=== PATIENT | male | born 2000 | race Caucasian/White ===

== ENCOUNTER 2022-05-13 22:01 | Emergency (ER) | payer OTHER, SELFPAY ==
[2022-05-13 22:13] VITALS: BP 0/0; PULSE 0; RESP 0; TEMP -17.7; TEMP 0
== END 2022-05-13 22:14 | disposition left against medical advice (07) ==
LOC: ER 22:07
PROVIDERS: Emergency Provider Emergency Medicine
DX: R10.9 Unspecified abdominal pain (principal)
CPT/HCPCS: 99211

== ENCOUNTER 2022-08-22 09:57 | Emergency (ER) | payer OTHER, SELFPAY ==
[2022-08-22 10:40] VITALS: BP 122/84; PULSE 113; RESP 20; TEMP 37.3; O2SAT 97; BMI 32.0
--- NOTE | 2022-08-22 10:47 | EXP.UTC ---
Discharge Plan Disposition Patient Disposition: Home, Self-Care Condition: Good Prescriptions Prescriptions: No Action No Known Home Medications Referrals Follow up/Referrals: Provider,Referral, MD [Primary Care Provider] - See instructions Activity Restrictions/Add. Instructions Additional Instructions/Restrictions: Drink plenty of fluids. Take tylenol or ibuprofen for pain or fever. Take the medications as directed. Follow up with your regular doctor. GO TO THE ER FOR ANY WORSENING SYMPTOMS Throw your tooth brush away and get a new one. Clinical Impressions Clinical Impression: Strep throat Stand Alone Forms Stand Alone Forms: Work/School Release Instructions Patient Instructions: Strep Throat, DI for Strep Throat Discharge ED Provider: Franklin Campos [facility] [place] HPI General Stated complaint: Sore throat Time Seen by Provider: 08/22/22 10:47 History of Present Illness Provider Complaint: He states that for the past 1 day he has had sore throat, body aches, chills, fever and malaise. Related Data Home Medications Medication Instructions Recorded Confirmed No Known Home Medications 08/13/18 08/13/18 Allergies Allergy/AdvReac Type Severity Reaction Status Date / Time No Known Allergies Allergy Verified 08/13/18 01:58 [facility] Disclaimer: The information contained in this section may have been updated after the patient was seen, as this information can be updated by other users. Social History Smoking Status: Never smoker alcohol intake: never substance use type: marijuana current occupational status: unemployed Travel in the last 8 weeks: None ROS Obtained: Yes All systems reviewed & no additional complaints except as documented Constitutional Constitutional: Reports chills and Reports fever(s) Eyes Eyes: Denies eye discharge ENT Ears, Nose, Mouth, and Throat: Reports as per HPI Cardiovascular Cardiovascular: Denies chest pain Respiratory Respiratory: Denies chest congestion and Reports cough Gastrointestinal Gastrointestingal: Reports nausea; Denies abdominal pain, constipation, cramping, diarrhea or vomiting Musculoskeletal Musculoskeletal: Denies arthralgias Integumentary/Breasts Skin/Breast: Denies rash Neurologic Neurologic: Denies paresthesias Physical Exam General General appearance: alert and in no apparent distress Head Head exam: atraumatic, normocephalic and normal inspection Eye Eye exam: Present normal appearance, PERRL and EOMI ENT ENT exam: Present mucous membranes moist and normal external ear exam Expanded ENT Exam TM/Canal exam: Bilateral TM: erythema and bulging Nose exam: Absent sinus tenderness Mouth exam: Present normal external inspection; Absent drooling Teeth exam: Present normal inspection Throat exam: Present tonsillar erythema, tonsillomegaly and tonsillar exudate Neck Neck exam: Present normal inspection, full ROM and trachea midline; Absent tenderness, meningismus or lymphadenopathy Chest Chest inspection: Present normal inspection and symmetric chest wall rise; Absent tenderness Respiratory Respiratory exam: Present normal lung sounds bilaterally; Absent respiratory distress, wheezes or stridor Cardiovascular Cardiovascular exam: Present regular rate and normal rhythm; Absent systolic murmur or diastolic murmur Abdominal Exam Abdominal exam: Present soft and normal bowel sounds; Absent distention, tenderness, guarding, rebound or rigidity Extremities Exam Extremities exam: Present normal inspection and normal capillary refill; Absent calf tenderness Back Exam Back exam: Present normal inspection and full ROM; Absent tenderness, CVA tenderness (R) or CVA tenderness (L) Neurological Exam Neurological exam: Present alert, oriented X3 and CN II-XII intact Psychiatric Psychiatric exam: Present normal affect and normal mood Skin Skin exam: Present warm, dry, int
[2022-08-22 10:54] LABS: UTC Strep Screen (Rapid) Positive (Negative)
[2022-08-22 11:50] VITALS: BP 122/84; PULSE 113; RESP 20; TEMP 37.3; O2SAT 97
== END 2022-08-22 11:49 | disposition home or self-care (01) ==
PROVIDERS: Emergency Provider Nurse Practitioner Family
DX: J02.0 Streptococcal pharyngitis (principal); R50.9 Fever, unspecified; R53.81 Other malaise
CPT/HCPCS: 87880; 96372; 99212; 99214; G0463; J0561

== ENCOUNTER 2023-03-07 16:27 | Emergency (ER) | payer OTHER, SELFPAY ==
[2023-03-07 16:30] VITALS: BP 143/91; PULSE 90; RESP 17; TEMP 37; O2SAT 98; BMI 32.7
[2023-03-07 16:34] VITALS: BP 143/91; PULSE 97; RESP 22; O2SAT 100
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
[2023-03-07 16:51] VITALS: O2SAT 98; BMI 32.7
--- NOTE | 2023-03-07 17:37 | PC.NURSE ---
Pt up to the bathroom, reports pain is 0/10 on [employer].
[2023-03-07 17:48] VITALS: BP 144/72; PULSE 90; RESP 17; TEMP 36.7; O2SAT 95
== END 2023-03-07 17:48 | disposition home or self-care (01) ==
PROVIDERS: Emergency Provider Emergency Medicine
DX: V29.99XA Rider (driver) (passenger) of other motorcycle injured in unspecified traffic accident, initial encounter; Z87.891 Personal history of nicotine dependence; S00.03XA Contusion of scalp, initial encounter
CPT/HCPCS: 70450; 71045; 72125; 73630; 99285

== ENCOUNTER 2023-12-19 11:22 | Emergency (ER) | payer OTHER, SELFPAY ==
[2023-12-19 11:50] VITALS: BP 123/83; PULSE 86; RESP 17; TEMP 37.4; O2SAT 98; BMI 33.2
[2023-12-19 12:11] LABS: UTC Strep Screen (Rapid) Negative (Negative)
--- NOTE | 2023-12-19 12:39 | EXP.UTC ---
Discharge Plan Disposition Patient Disposition: Home, Self-Care Condition: Good Prescriptions Prescriptions: New amoxicillin 875 mg tablet 875 mg PO Q12H Qty: 20 0RF methylprednisolone [Medrol (Praful)] 4 mg tablets,dose pack See Rx Instructions .Route .COMPLEX 6 Days Qty: 21 0RF Rx Instructions: taper pack; Referrals Follow up/Referrals: Eron Stroud MD [Primary Care Provider] - See instructions Activity Restrictions/Add. Instructions Additional Instructions/Restrictions: *Monitor Temp, Over the counter Motrin or Tylenol as directed/as needed Tylenol every 4 hours and Motrin every 6 hours (as long as your family doctor has told you that you can take it) for fever or pain. and straight to ER if unable to lower temp less than 101.0 after medication given *Warm salt water gargles may help to soothe the throat *Throat Lozenges? *Warm fluids like tea with honey may help to soothe the throat? *Sleep elevated *Humidifier/Vaporizer * *If you did not take Penicillin shot or was unable to, start taking antibiotic immediately and make sure that you take it for the FULL length of time although you should start to feel better in 24-48 hours *change toothbrush and toothpaste 24-48 hours after starting to take antibiotics so you do not reinfect yourself Monitor Temp. Tylenol and/or Ibuprofen as needed. ER if fever is no less than 101 despite alternating Tylenol and Ibuprofen * Encourage fluids, water, Gatorade, powerade, pedialyte if /toddler/or child *Cold fluids, popsicles and ice cream may feel good on his throat Follow up IMMEDIATELY for new or worsening symptoms or no Noticeable improvement over the next 48-72 hours. 911 for difficulty breathing or swallowing Clinical Impressions Clinical Impression: Bacterial tonsillitis Instructions Patient Instructions: Sore Throat, Amoxicillin Print Language Print Language: [place] Discharge ED Provider: Jazz Marshall [facility] [place] General Stated complaint: sore throat Mode of Arrival: Ambulatory Source of Information: Patient Limitations: No Limitations Time Seen by Provider: 12/19/23 12:39 Description of Symptoms (Recalled from Triage Doc. by RN): PATIENT C/O SORE THROAT AND SWOLLEN GLANDS X 4 DAYS HEENT Symptoms (Recalled from RN notes): Yes Resp Symptoms (Recalled from RN notes): No Skin Symptoms (Recalled from RN notes): No MS Symptoms (Recalled from RN notes): No Functional Status (Recalled from RN notes): WNL History of Present Illness Provider Complaint: Patient states that he has been having sore throat, swollen glands and pain and pressure in his ears for several days States this morning his throat was hurting worse so he came in to get checked Related Data Previous Rx's ?Medication ?Instructions ?Recorded amoxicillin 875 mg tablet 875 mg PO Q12H #20 tabs 12/19/23 methylprednisolone 4 mg tablets in See Rx Instructions .Route 12/19/23 a dose pack (Medrol (Praful)) .COMPLEX 6 days #21 tabs Allergies Allergy/AdvReac Type Severity Reaction Status Date / Time No Known Allergies Allergy Verified 08/13/18 01:58 Worker's Comp Is this a Worker's Comp case?: [facility] Dis[facility]: The information contained in this section may have been updated after the patient was seen, as this information can be updated by other users. Medical History (Updated 12/19/23 @ 12:43 by Jazz Marshall APRN) Anxiety Asthma Social History (Updated 08/23/22 @ 15:42 by Franklin Campos APRN) Smoking Status: Current every day smoker alcohol intake: never substance use type: marijuana current occupational status: unemployed Travel in the last 8 weeks: None ROS Obtained: Yes All systems reviewed & no additional complaints except as documented and Yes Systems reviewed as appropriate & no additional complaints except as documented Constitutional Constitutional: Reports system reviewed and no additional complaints, except as documented, Reports as per HPI and Reports headache(s) ENT Ears, Nose, Mouth, and Throat: Reports system reviewed and no additional complaints, except as documented, Reports as per HPI, Reports otalgia, Reports headache(s) and Reports sore throat Cardiovascular Cardiovascular: Reports system reviewed and no additional complaints, except as documented and Reports as per HPI Respiratory Respiratory: Reports system reviewed and no additional complaints, except as documented and Reports as per HPI Gastrointestinal Gastrointestingal: Reports system reviewed and no additional complaints, except as documented and as per HPI Neurologic Neurologic: Reports headache(s) Physical Exam General General appearance: alert and in no apparent distress ENT ENT exam: Present mucous membranes moist Expanded ENT Exam TM/Canal exam: Bilateral TM: erythema and bulging Throat exam: Present tonsillar erythema and tonsillar exudate Respiratory Respiratory exam: Present normal lung sounds bilaterally; Absent respiratory distress or wheezes Cardiovascular Cardiovascular exam: Present regular rate, normal rhythm and normal heart sounds Abdominal Exam Abdominal exam: Present soft and normal bowel sounds; Absent distention or tenderness Neurological Exam Neurological exam: Present alert, oriented X3 and normal gait Medical Decision Making Zachariah Inquiry Pt receiving controlled substance: No Zachariah was queried for this patient: No Vital Signs: 12/19/23 11:50 Temperature 99.3 F Temperature Source Oral Pulse Rate [Left Brachial] 86 Respiratory Rate 17 Blood Pressure [Left Arm] 123/83 Blood Pressure Mean [Left Arm] 96 Blood Pressure Source [Left Arm] Automatic Cuff Blood Pressure Position [Left Arm] Sitting 02 Sat by Pulse Oximetry 98 Oxygen Delivery Method Room Air Lab Data Lab results reviewed: Yes I reviewed the patient's lab results. Lab Results 12/19/23 12:09: Strep Scn Rapid Clinic Negative Orders (Tests/Meds): ORDERS Category Date Time Status Strep Screen Confirmation Stat Micro 12/19/23 12:09 Received
[2023-12-19 12:44] VITALS: BP 123/83; PULSE 86; RESP 17; TEMP 37.4; O2SAT 98
== END 2023-12-19 12:50 | disposition home or self-care (01) ==
PROVIDERS: Emergency Provider Nurse Practitioner; PCP Internal Medicine Adolescent Medicine
DX: J03.80 Acute tonsillitis due to other specified organisms (principal); H92.03 Otalgia, bilateral; R51.9 Headache, unspecified
CPT/HCPCS: 87880; 99212; 99214; G0463